=== PATIENT | male | born 1980 | race African-American/Black ===

== ENCOUNTER 2019-10-12 13:53 | Inpatient (IN) | payer MEDICAID, OTHER ==
[~2019-10-12] VITALS: Ht 172.7 cm; Wt 85.7 kg
[2019-10-12] MEDS ORDERED: VANCOMYCIN 1 G PREMIX 200 ML IV ONE (15:15)
[2019-10-12] MEDS ORDERED: PIPERACILLIN/TAZ 3.375G PREMIX 50 ML IV ONE (15:15)
[2019-10-12] MEDS ORDERED: ONDANSETRON HCL 4MG/2ML INJ IV STA (15:15)
[2019-10-12] MEDS ORDERED: ACETAMINOPHEN 325MG TABLET PO STA (15:15)
[2019-10-12] MEDS ORDERED: MORPHINE SULFATE 4 MG/ML CPJ (NOT FOR IM USE) IV STA (15:15)
[2019-10-12] MEDS ORDERED: SODIUM CHLORIDE 0.9% 1000ML BAG (SEPSIS BOLUS) IV ONE (15:15)
[2019-10-12 15:46] LABS: PROTHROMBIN TIME 10.8 sec (9.6-11.0)
[2019-10-12 15:48] LABS: CHLORIDE 99 mEq/L (98-107)
[2019-10-12 15:48] LABS: CLARITY URINE CLEAR (CLEAR); COLOR URINE DARK YELLOW (YELLOW); KETONES URINE NEGATIVE (NEGATIVE); LEUKOCYTE ESTERASE URINE NEGATIVE (NEGATIVE); NITRITE URINE NEGATIVE (NEGATIVE); OCCULT BLOOD URINE NEGATIVE (NEGATIVE); PH URINE 6.5 (4.5-8.0); PROTEIN URINE 1+ (NEGATIVE); SPECIFIC GRAVITY URINE 1.025 (1.005-1.030)
[2019-10-12 15:50] LABS: HEMATOCRIT. 43.9 % (42.0-52.0); HEMOGLOBIN. 14.7 g/dL (14.0-18.0); MEAN CORPUSCULAR HEMOGLOBIN 25.1 pg (28.0-32.0); MEAN CORPUSCULAR VOLUME 75.1 fL (80.0-94.0); MEAN PLATELET VOLUME 7.6 fl (7.4-10.4); PLATELET 231 x1000/uL (130-400); RED BLOOD CELL COUNT 5.85 mill/uL (4.7-6.1); RED CELL DISTRIBUTION WIDTH 15.7 % (11.6-14.6)
[2019-10-12 16:12] LABS: *AMPHETAMINES SCREEN URINE PRESUMTIVE POSITIVE (NEGATIVE); *BARBITURATES SCREEN URINE NEGATIVE (NEGATIVE); *BENZODIAZEPINES SCREEN URINE NEGATIVE (NEGATIVE); *COCAINE SCREEN URINE NEGATIVE (NEGATIVE)
[2019-10-12 16:13] LABS: CANNABINOID URINE SCREEN NEGATIVE (NEGATIVE); METHADONE URINE SCREEN NEGATIVE (NEGATIVE); OPIATES URINE SCREEN NEGATIVE (NEGATIVE); PHENCYCLIDINE URINE SCREEN NEGATIVE (NEGATIVE)
[2019-10-12 17:25] LABS: PLATELET ESTIMATE NORMAL
[2019-10-12] MEDS ORDERED: GUAIFENESIN 200MG/10ML SUGAR FREE UDC PO PRN (18:30)
[2019-10-12] MEDS ORDERED: MAGNESIUM/ALUMINUM HYDROXIDE/SIMETHICONE 30ML UDC PO PRN (18:30)
[2019-10-12] MEDS ORDERED: HYDRALAZINE 20MG/ML VIAL IV PRN (18:30)
[2019-10-12] MEDS ORDERED: DOCUSATE SODIUM 100MG CAPSULE PO PRN (18:30)
[2019-10-12] MEDS ORDERED: LORAZEPAM 2MG/ML CPJ IV PRN (18:30)
[2019-10-12] MEDS ORDERED: DIPHENHYDRAMINE 50MG/ML VIAL IV PRN (18:30)
[2019-10-12] MEDS ORDERED: ONDANSETRON HCL 4MG/2ML INJ IV PRN (18:30)
[2019-10-12] MEDS ORDERED: CLONIDINE 0.1MG TABLET PO PRN (18:30)
[2019-10-12] MEDS ORDERED: IPRATROPIUM/ALBUTEROL 0.5-3(2.5)MG/3ML NEB HHN PRN (18:30)
[2019-10-12] MEDS ORDERED: PIPERACILLIN/TAZ 3.375G PREMIX 50 ML IV SCH (18:30)
[2019-10-12] MEDS ORDERED: VANCOMYCIN 1 G PREMIX 200 ML IV SCH (18:30)
[2019-10-12] MEDS: SODIUM CHLORIDE 0.45% 1,000 ML IV SCH (20:43)
[2019-10-12 22:30] VITALS: BP 138/52
[2019-10-12] MEDS: ACETAMINOPHEN 325MG TABLET PO PRN (23:06)
[2019-10-12] MEDS: SODIUM CHLORIDE 0.9% INJ 3ML FLUSH IVF SCH (23:07)
[2019-10-13] VITALS: BP 139/62
[2019-10-13 00:56] LABS: CREATINE KINASE 220 IU/L (39-308)
[2019-10-13 00:57] LABS: CREATINE KINASE MB FRACTION 1.3 ng/mL (0.5-3.6)
[2019-10-13] MEDS ORDERED: VANCOMYCIN 1500MG in DEXTROSE 5% WATER 250ML IV NR (02:00)
[2019-10-13] MEDS: SODIUM CHLORIDE 0.45% 1,000 ML IV SCH ×3 (02:17→21:00)
[2019-10-13 04:00] VITALS: BP 110/61
[2019-10-13] MEDS: PIPERACILLIN/TAZOBACTAM 3.375 G in DEXT 5% WATER 100 ML IV SCH ×3 (05:32→21:05)
[2019-10-13] MEDS: ACETAMINOPHEN 325MG TABLET PO PRN ×2 (05:33→15:29)
[2019-10-13] MEDS: SODIUM CHLORIDE 0.9% INJ 3ML FLUSH IVF SCH ×3 (05:33→21:05)
[2019-10-13] MEDS: MORPHINE SULFATE 2 MG/ML CPJ (NOT FOR IM USE) IV PRN ×2 (05:46→13:53)
[2019-10-13 08:00] VITALS: BP 111/47
[2019-10-13] MEDS: ENOXAPARIN 40MG/0.4ML SYR SUBCUT SCH (09:00)
[2019-10-13 09:32] LABS: HEMOGLOBIN. 12.6 g/dL (14.0-18.0); MEAN CORPUSCULAR HEMOGLOBIN 25.1 pg (28.0-32.0); MEAN CORPUSCULAR VOLUME 75.9 fL (80.0-94.0); MEAN PLATELET VOLUME 7.1 fl (7.4-10.4); PLATELET 163 x1000/uL (130-400); RED BLOOD CELL COUNT 5.01 mill/uL (4.7-6.1); RED CELL DISTRIBUTION WIDTH 15.5 % (11.6-14.6)
[2019-10-13 09:46] LABS: CHLORIDE 100 mEq/L (98-107)
[2019-10-13 09:55] LABS: CREATINE KINASE 325 IU/L (39-308)
[2019-10-13 09:57] LABS: CREATINE KINASE MB FRACTION < 1.0 ng/mL (0.5-3.6)
[2019-10-13] MEDS ORDERED: PNEUMOCOCCAL 23-VAL P-SAC VAC 0.5 ML IM ONE (10:00)
[2019-10-13] MEDS ORDERED: INFLUENZA VIRUS VACCINE(AFLURIA) 0.5ML SYR IM ONE (10:00)
[2019-10-13 12:26] VITALS: BP 131/60
[2019-10-13] MEDS: VANCOMYCIN 1250MG in DEXTROSE 5% WATER 250ML IV SCH (13:32)
[2019-10-13 17:19] LABS: PLATELET ESTIMATE NORMAL
[2019-10-13 17:20] VITALS: BP 101/59
[2019-10-13 20:00] VITALS: BP 116/57
[2019-10-14] VITALS: BP 106/59
[2019-10-14] MEDS: MORPHINE SULFATE 2 MG/ML CPJ (NOT FOR IM USE) IV PRN (00:06)
[2019-10-14] MEDS: VANCOMYCIN 1250MG in DEXTROSE 5% WATER 250ML IV SCH ×2 (02:14→13:21)
[2019-10-14 04:00] VITALS: BP 112/50
[2019-10-14] MEDS: SODIUM CHLORIDE 0.9% INJ 3ML FLUSH IVF SCH ×2 (05:43→13:21)
[2019-10-14] MEDS: PIPERACILLIN/TAZOBACTAM 3.375 G in DEXT 5% WATER 100 ML IV SCH ×2 (05:43→15:06)
[2019-10-14] MEDS: ACETAMINOPHEN 325MG TABLET PO PRN ×2 (05:46→12:48)
[2019-10-14 08:00] VITALS: BP 104/61
[2019-10-14] MEDS: ENOXAPARIN 40MG/0.4ML SYR SUBCUT SCH (09:00)
[2019-10-14] MEDS: SODIUM CHLORIDE 0.45% 1,000 ML IV SCH (09:58)
[2019-10-14 11:46] VITALS: BP 102/72
[2019-10-14 13:39] VITALS: BP_SYST 100; BP_SYST 102; BP_DIAS 52; BP_DIAS 72
[2019-10-14] MEDS ORDERED: HYDROCODONE/ACETAMINOPHEN 5/325MG TABLET PO PRN (15:30)
[2019-10-15] MEDS ORDERED: VANCOMYCIN 750 MG PREMIX 150 ML IV SCH (02:00)
== END 2019-10-14 16:22 | disposition short-term general hospital (02) | DRG 872 ==
LOC: ER 15:07 → EDBEDREQ 17:43 → EDBEDREQSVC 17:43 → ENRESERV 20:41 → 8WST 21:36
PROVIDERS: ADMIT Internal Medicine; ATTEND Internal Medicine
DX: A41.9 Sepsis, unspecified organism (principal); L03.116 Cellulitis of left lower limb; E86.0 Dehydration; I10 Essential (primary) hypertension; F17.200 Nicotine dependence, unspecified, uncomplicated; F15.10 Other stimulant abuse, uncomplicated
CPT/HCPCS: 36415; 71045; 73590; 80053; 80202; 80305; 81003; 82550; 82553; 83605; 84145; 84484; 85025; 93005; 93971; 99291; J1650; J2270; J2405; J2543; J3370; J7030; J7060